=== PATIENT | female | born 1980 | race Caucasian/White ===

== ENCOUNTER 2021-07-02 19:44 | Emergency (ER) | payer SELFPAY ==
[2021-07-02] VITALS (19 sets, daily range): BP systolic 113–153; BP diastolic 74–99; PULSE 71–93; RESP 11–20; TEMP 36.7; O2SAT 96–100
--- NOTE | ~2021-07-02 | CT_ITS ---
EXAMINATION: CT brain wo con EXAM DATE: 07/02/2021 21:14 INDICATION: Seizure. Unresponsive. Diabetic. TECHNIQUE: Spiral CT of the head was performed without contrast. Axial, coronal and sagittal images were reviewed. The dose-length product (DLP) for this examination was 605.33 mGy-cm. The exposure w as tailored according to patient size, and iterative reconstruction (ASIR) was used as additional dos e reduction technique. There is no prior study for comparison. FINDINGS: There is no acute intraparenchymal hemorrhage. No evidence of intraparenchymal brain mass lesion. No evidence of acute infarction. There is no mass effect or midline shift. The ventricles are normal in size. There are no extra-axial collections. There are no acute calvarial fractures. T he orbits are unremarkable. Soft tissue is unremarkable. The visualized sinuses and mastoid air wil ls are well aerated. IMPRESSION: 1. Unremarkable head CT examination. Reviewed, dictated and finalized at location G. STER[employer] MIDWIFE
--- NOTE | ~2021-07-02 | CT_ITS ---
EXAMINATION: CTA chest PE protocol EXAM DATE: 07/02/2021 22:41 INDICATION: syncope, elevated dimer. TECHNIQUE: Spiral CTA of the chest (pulmonary arteries) was performed with 100 cc Omnipaque 350 intr avenous contrast injection. Images were acquired during the pulmonary arterial phase. Coronal maxi mum intensity projection 3D-reconstructions were created by the technologist on dedicated workstation . Axial, coronal and sagittal reformatted images were reviewed. The dose-length product (DLP) for t his examination was 204.32 mGy-cm. The exposure was tailored according to patient size (auto mA exp osure control), and iterative reconstruction (ASIR) was used as additional dose reduction technique. There is no prior study for comparison. FINDINGS: Pulmonary arteries are well opacified and without intraluminal filling defects. No thora cic aortic dissection. The lungs are clear. There are no pleural or pericardial effusions. Trach eobronchial tree is patent. There is no mediastinal, hilar or axillary lymphadenopathy. There is no pneumothorax. Heart normal in size. There is mild coronary arterial calcification, arterial sc lerosis. Gastroesophageal surgical changes, gastric bypass? This is incompletely imaged. There is m ild thoracic spondylosis without osteoblastic or osteolytic lesions identified. Bilateral breast im plants. IMPRESSION: 1. No acute cardiopulmonary findings. Reviewed, dictated and finalized at location G. BULLDOZER
--- NOTE | ~2021-07-02 | US_ITS ---
US venous doppler [facility] DATE: 07/03/2021 08:35 INDICATION: Pain and swelling of lower extremities. Elevated d-dimer. TECHNIQUE: Real-time and color flow imaging and Doppler analysis of the veins of both lower extremiti es COMPARISON: None FINDINGS: The greater saphenous veins are patent. There is spontaneous and phasic flow and normal aug mentation and color flow signal and normal compression of the deep veins of both lower extremities. IMPRESSION: No evidence of deep venous thrombosis of either leg Reviewed, dictated and finalized at Location A. Reviewed, dictated and finalized at location B. E FUND MANAGER
--- NOTE | 2021-07-02 19:51 | ECG_ITS ---
Measurements Intervals [place] Rate: 92 P: 65 WI: 161 QRS: 22 QRSD: 80 T: 67 QT: 348 QTc: 431 Interpretive Statements SINUS RHYTHM LOW QRS VOLTAGE IN PRECORDIAL LEADS CANNOT RULE OUT SEPTAL INFARCT, AGE INDETERMINATE BORDERLINE ST-T WAVE ABNORMALITY- HIGH LATERAL LEADS BASELINE ARTIFACT- I, II, AVR, AVL, V3 ABNORMAL ECG Electronically Signed On 07-03-2021 8:04:34 LOT TECHNICIAN by Diego Sexton D.O.
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
[2021-07-02 21:11] LABS: Basophils Percent Auto 0.4 % (0.2-1.2); Eosinophils Percent Auto 0.8 % (0-4.4); Hematocrit 32.7 % (37.0-47.0); Hemoglobin 10.5 g/dL (12.0-15.0); Immature Granulocyte Absolute 0.02 K/mm3 (0.00-0.031); Immature Granulocyte Percent A 0.4 % (0-0.5); Lymphocytes Absolute Auto 1.15 K/mm3 (0.9-3.2); Lymphocytes Percent Auto 23.1 % (18.3-44.2); Mean Corpuscular HGB Conc 32.1 g/dl (32-36); Mean Corpuscular Hemoglobin 29.3 pg (26-34); Mean Corpuscular Volume 91.3 fl (80-100); Mean Platelet Volume 12.1 fl (7.4-10.4); Monocytes Absolute Auto 0.5 K/mm3 (0.1-0.6); Monocytes Percent Auto 9.5 % (2.6-8.5); Neutrophils Absolute Auto 3.3 K/mm3 (1.3-6.7); Neutrophils Percent Auto 65.8 % (45.5-73.1); Platelet Count Result 176 k/mm3 (150-375); Red Blood Count 3.58 M/mm3 (4.2-5.4); Red Cell Distribution Width 12.8 % (11.5-14.5)
[2021-07-02 21:30] LABS: CRP 4.7 mg/dL (<1.0)
[2021-07-02 22:19] LABS: Alanine Aminotransferase 13 U/L (4-35); Albumin Level 3.6 g/dL (3.5-5.1); Alkaline Phosphatase 80 U/L (38-126); Anion Gap 4 mmol/L (8-16); Aspartate Amino Transferase 22 U/L (14-36); Bilirubin,Total 0.5 mg/dL (0.2-1.3); Blood Urea Nitrogen 10 mg/dL (7-17); Calcium 8.6 mg/dL (8.4-10.2); Carbon Dioxide 23 mmol/L (22-30); Chloride 109 mmol/L (98-107); Estimated CRCL calculation 126 ml/min; Estimated Glomerular Filt Rate > 60; Glucose 124 mg/dL (65-110); Potassium 3.9 mmol/L (3.4-5.0); Sodium 136 mmol/L (137-145)
[2021-07-02 22:27] LABS: Add Urine Microscopic? YES; Appearance Urine Cloudy (Clear); Bacteria Urine 2+ /hpf; Bilirubin Urine Negative (Negative); Blood Urine 2+ (Negative); Color Urine Yellow (Yellow); Glucose Urine UA Negative (Negative); Ketones Urine Trace mg/dL (Negative); Leukocyte Esterase Ur 2+ LEU/UL (Negative); Mucus Urine Rare /lpf; Nitrate Urine Positive (Negative); Protein Urine Negative (Negative); RBC Urine >75 /hpf (0-2); Specific Grav Ur 1.018 (1.001-1.035); Squamous Epithelial Cell Urine Moderate /hpf (Few); WBC Urine >75 /hpf
[2021-07-02 22:34] LABS: Barbiturate Screen Urine Negative (Negative); Benzodiazepines Screen Urine Negative (Negative)
[2021-07-02 22:44] LABS: Cannabinoid Screen Urine Negative (Negative); Cocaine Screen Urine Negative (Negative); Methadone Screen Urine Negative (Negative); Opiate Screen Urine Negative (Negative); Phencyclidine Screen Urine Negative (Negative)
[2021-07-02 23:01] LABS: Amphetamine Screen Urine Positive (Negative)
[2021-07-03] VITALS (29 sets, daily range): BP systolic 109–136; BP diastolic 68–93; PULSE 63–88; RESP 13–21; O2SAT 96–100
[2021-07-03 00:06] LABS: Creatine Kinase 76 U/L (30-135)
[2021-07-03] MEDS: ENOXAPARIN 80 MG/0.8 ML SYRINGE SUB-Q (00:57)
[2021-07-03] MEDS: levETIRAcetam 1000MG/NACL100ML 1,000 MG/100 ML BAG 400 MG IVPB (00:58)
--- NOTE | 2021-07-03 08:11 | PC.NURSE ---
Pt taken to ultrasound at this time
== END 2021-07-03 09:11 | disposition home or self-care (01) ==
LOC: ANHED 20:06
PROVIDERS: Emergency Provider Emergency Medicine
DX: F15.129 Other stimulant abuse with intoxication, unspecified (principal); M79.605 Pain in left leg; M79.604 Pain in right leg; E11.40 Type 2 diabetes mellitus with diabetic neuropathy, unspecified; Z86.73 Personal history of transient ischemic attack (TIA), and cerebral infarction without residual deficits; R94.31 Abnormal electrocardiogram [ECG] [EKG]
CPT/HCPCS: 36415; 70450; 71275; 80053; 80307; 81001; 81025; 82550; 85025; 85380; 86140; 87077; 87086; 87088; 87186; 93005; 93970; 96365; 96372; 99284; J1650; J1953; Q9967